=== PATIENT | female | born 2005 | race Caucasian/White ===

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

== ENCOUNTER 2025-06-25 21:16 | Emergency (ER) | payer OTHER, SELFPAY ==
--- NOTE | ~2025-06-25 | CT_ITS ---
EXAMINATION: CT abdomen pelvis w con DATE: 06/26/2025 00:42 INDICATION: Generalized abdominal pain TECHNIQUE: Computed tomography (CT) of the abdomen and pelvis was performed with 100 cc Omnipaque 350 intravenous contrast. The dose-length product was 332.52 mGy-cm. Automated exposure control and iterative reconstruction technique were employed. COMPARISON: CT dated 05/25/2023 FINDINGS: Heart size normal. No significant pleural or pericardial effusion. Fatty infiltration of the liver. There is mild thickening of the descending colon with surrounding inflammation, suspicious for diverticulitis versus colitis. No abscess identified. Fatty infiltration of the liver. The pancreas, adrenal glands and kidneys are unremarkable. Gallbladder is present. Nonob structive bowel gas pattern. Small amount of free fluid in the pelvis. No acute osseous abnormality. There is a right ovarian cyst measuring 3.2 cm. IMPRESSION: 1. Mild thickening of the descending colon with surrounding inflammation/fluid. Differential diagnosis includes infectious/inflammatory colitis versus diverticulitis. Reviewed, dictated and finalized at location O. IMPRESSION: 1. Mild thickening of the descending colon with surrounding inflammation/fluid. Differential diagnosis includes infectious/inflammatory colitis versus diverti culitis.
--- OUTSIDE RECORDS SUMMARY | 2025-06-25 21:18 | XMS_ITS | Clinical Summary ---
Author Organization [facility] Address [address] [place] [address] Phone Care Team Providers Care Mechanical Product Engineer Name Role Phone Conor Rangel MD Primary Care Provider [phone] Allergies Active Allergy Reactions Criticality Noted Date Comments Amoxicillin Hives 05/17/2021 Cefdinir Rash Medium 12/08/2018 Penicillins Rash Medium 12/08/2018 Medications metroNIDAZOLE (FLAGYL) 500 MG TabletIndication s:BV (bacterial vaginosis) Take 1 Tablet by mouth 2 times daily. 30 Tablet 09/28/2021 Active Active Problems No known active problems Social History Tobacco Use Types Packs/Day Years Used Date Smoking Tobacco: Never Smokeless Tobacco: Never Alcohol Use Standard Drinks/Week Comments Never 0 (1 standard drink = 0.6 oz pur e alcohol) Sexually Active Control Partners Comments Never Comments No Sex and Gender Information Value Date Recorded Sex Assigned at Not on file Legal Sex Female 11:25 AM CDT Gender Identity Not on file Sexual Orientation Not on file Last Filed Vital Signs Vital Sign Reading Time Taken Comments Blood Pressure 116/64 09/28/2021 5:40 PM SIGN BUILDER Pulse 90 09/28/2021 5:40 PM SIGN BUILDER Temperature 36.9 C (98.4 F) 09/28/2021 5:40 PM SIGN BUILDER Respiratory Rate 16 09/28/2021 5:40 PM SIGN BUILDER Oxygen Saturation 95% 09/28/2021 5:40 PM SIGN BUILDER Inhaled Oxygen Concentration - - Weight 66.5 kg (146 lb 9.6 oz) 09/28/2021 5:40 P M SIGN BUILDER Height - - Body Mass Index - - Plan of Treatment Health Maintenance Due Date Last Done Comments Hepatitis C Virus (HCV) Screening 2005 Meningococcal B Immunization (1 of 2 - Standard) 2021 SARS-COV-2 Immunization ( season) 2024 Influenza Immunization (#1) 07/01/202510/01, 06/11/2011, 09/27/2007, Additional history exists Respiratory Syncytial Virus (RSV) Immunization (Adult) (1 - 1-dose 75+ series) 2080 Pneumococcal Immunization Combined Aged Out 04/18/2006, 2005, 2005, Additional history exists No longer eligible based on patient's age to complete this topic Hepatitis A Immunization Discontinued 09/27/2007, 12/30 Varicella Immunization Discontinued 06/23/2009, 2005 Measles Mumps Rubella (MMR) Immunization Discontinued 03/25/2010, 04/18/2006 Polio (IPV) Immunization Discontinued 010, 2005, 2005, Additional history exists DTaP/Tdap/Td Immunization Discontinued 2015, 07/01/2010, 08/19/2006, Additional history exists Meningococcal Immunization (ACWY) Aged Out 04/14/2016 No longer eligible based on patient's age to complete this topic TdaP Immunization Completed 04/14/2016 Human Papillomavirus (HPV) Immunization Completed 10/20/2016, 06/14/2016, 04/14/2016 Hepatitis B Immunization Completed 021, 2005, 2005 Rotavirus Immunization Aged Out No lo nger eligible based on patient's age to complete [place] [address] [place] [id number] [facility] Care Teams Mechanical Product Engineer Relationship Specialty Start Date End Date Conor Rangel MD [address] [place] [address] PCP - General Pediatrics 05/17/21
--- OUTSIDE RECORDS SUMMARY | 2025-06-25 21:18 | XMS_ITS | Clinical Summary ---
Author Organization [facility] [place] [address] Address [address] [place] [address] Phone Care Team Providers Care Traffic Controller Cable Name Role Phone Jeevan Wahl MD Primary Care Provider + Allergies Active Allergy Reactions Criticality Noted Date Comments Cefdinir Rash Medium 12/08/2018 Penicillins Medications etonogestreL (NEXPLANON) 68 mg implantIndications : Contraception by subdermal route Active valACYclovir (VALTREX) 500 mg tablet Take 1 tablet (500 mg) by mouth twice daily for 3 days. 6 tablet 5 4 10/26/20 25 Active busPIRone (BUSPAR) 10 mg tablet Take 1 tablet (10 mg total) by mouth 2 (two) times a day 5 Active lisdexamfetamine (VYVANSE) 40 mg capsule Take 1 capsule (40 mg total) by mouth every morning 5 Active Active Problems Problem Noted Date Diagnosed Date Genital herpes 05/13/2023 Encounters Date Type Department Care Team Description 05/08/2025 Results Follow-Up [facility] [place] [address] [place] [id number] Carlee Zelaya NP Vaginitis panel Vaginal, Urine culture Urine, clean voided 05/07/2025 5:03 PM CDT - 05/07/2025 11:59 PM CDT Hospital Encounter [facility] [address] [place] [address] Dysuria Discharge Disposition: Discharge to home or self care 05/07/2025 5:00 PM CDT Office Visit [facility] [place] [address] [place] [address] Eufemia Benson NP Dysuria (Primary Dx) from Last 3 Months Medical History Medical History Date Comments 2021 Family History Medical History Relation Name Comments Breast cancer Maternal Great-Grandmother Hypertension Paternal Grandfather Hypertension Paternal Grandmother Breast cancer Paternal Great-Grandmother Relation Name Status Comments Maternal Great-Grandmother Paternal Grandfather Paternal Grandmother Paternal Great-Grandmother Social History Tobacco Use Types Packs/Day Years Used Date Smoking Tobacco: Some Days Vaping Smokeless Tobacco: Never Tobacco Cessation:Ready to Q uit: Not Asked; Counseling Given: Not Answered Comments No Sex and Gender Information Value Date Recorded Sex Assigned at Not on file Legal Sex Female 12:23 PM CATERING COORDINATOR Gender Identity Not on file Sexual Orientation Not on file Occupation Industry Job Start Date Job End Date Student- [employer] Not on file Not on file Not on file Obstetrics History Para Term AB IAB SAB Ectopic Multiple Livin g Live Births 0 0 0 0 0 0 0 0 0 0 0 Last Filed Vital Signs Vital Sign Reading Time Taken Comments Blood Pressure 120/70 05/07/2025 4:56 PM CDT Pulse 84 05/07/2025 4:56 PM CDT Temperature 36.1 C (97 F) 05/07/2025 4:56 PM CDT Respiratory Rate 16 05/07/2025 4:56 PM CDT Oxygen Saturation 98% 05/07/2025 4:56 PM CDT Inhaled Oxygen Concentration - - Weight 62.1 kg (137 lb) 05/07/2025 4:56 PM CDT Height 162.6 cm (5' 4) 05/07/2025 4:56 PM CDT Body Mass Index 23.52 05/07/2025 4:56 PM CDT Plan of Treatment Health Maintenance Due Date Last Done Comments Depression Screening 2005 Hepatitis C Screening 2005 Pneumococcal vaccine <65 (1 of 1 - PPSV23, PCV20, or PCV21) 2011 04/18/2006, 2005, 2005, Additional history exists Meningococcal B Vaccine (1 o f 2 - Standard) 2021 Influenza Vaccine (#1) 2025 6, 06/11/2011, 09/27/2007, Additional history exists Chlamydia and Gonorrhea (GC/ CT) Screening 01/04/2026 01/04/2025, 11/22/2022, 05/31/2022, Additional history exists Regular Well Visit/Exam 18-64 01/04/2026 01/04/2025 DTaP/Tdap/Td Vaccine (7 - Td or Tdap) 04/14/2026 04/14/2016, 07/01/2010, 08/19/2006, Additional history exists Varicella Vaccines Completed 06/23/2009, 04/18/2006 HPV Vaccines Completed 10/20/2016, 05/31, 04/14/2016 Hepatitis B Screening Completed 07/01/2021 , 2005, 2005 Meningococcal Vaccine Completed 07/12/2022, 016 Procedures Procedure Name Priority Date/Time Associated Diagnosis Comments POCT URINALYSIS DIPSTICK Routine 05/07/2025 5:07 PM CDT Dysuria VAGINITIS PANEL Routine 05/07/2025 5:03 PM CDT Dysuria URINE CULTURE Routine 05/07/2025 5:03 PM CDT Dysuria N. GONORRHOEAE/C. TRACHOMATIS AMPLIFICATION Routine 01/04/2025 3:55 PM CATERING COORDINATOR Screening for venereal disease from Last 3 Months or Most Recently Relevant to Health Maintenance Results * (ABNORMAL) POCT urinalysis dipstick (05/07/2025 5:07 PM CDT) Color, Urine, POC Yellow Clarity, ur, POC Clear Clear Glucose, ur, POC Negative Negative Bilirubin, ur, POC Negative Negative Ketones, ur, POC Negative Negative Specific Harmony, POC 1.015 1.003 - 1.030 Blood, ur, POC Trace(A) Negative pH, ur, POC 7.0 5.0 - 8.0 Protein, ur, POC Negative Negative Urobilinogen, urine, POC 0.2 0.2 - 1.0 mg/dL Nitrite, ur, POC Negative Negative Leukocytes, ur, POC Negative Negative Lot Number [id number] Urine 05/07/2025 5:07 PM CDT Eufemia Benson POINT OF CARE TEST ORDERABLES Fi nal Result * (ABNORMAL) Vaginitis panel Vaginal (05/07/2025 5:03 PM CDT) Pathologist [facility] Bacterial Vaginosis Not Detected Not Detected Comment:A negative result do es not preclude a possible infection. Results should be considered in conjunction with clinical presentation to determine the disease status. Paola group Detected(A) Not Detected [facility] Comment:Paola species can be present as commensal organisms in women; results should be considered in conjunction with clinical presentation to determine the disease status. Paola glabrata/ krusei Not Detected Not Detected [facility] Trichomonas DNA Not Detected Not Detected [facility] Vaginal 05/07/2025 5:03 PM CDT 05/07/2025 9:05 PM CDT Narrative [facility] - 05/07/2025 10:08 PM CDT The CepPressConnectid Xpert Xpress MVP test detects DNA targets from anaerobic bacteria associated with bacterial vaginosis, Paola species associated with vulvovaginal candidiasis, and Trichomonas vaginalis by nucleic acid amplification testing (NAAT). Results should be interpreted in conjunction with other clinical data. This test cannot be used to assess therapeutic success or failure because target nucleic acids may persist following antimicrobial therapy. This test has been cleared by the [place] Food and Drug Administration to aid in the diagnosis of vaginal infections in symptomatic women ages 14 and older. The performance characteristics of this test have been verified by the [facility]. us Eufemia Benson NP LAB MICROBIOLOGY - GENERAL ORDER MAKEDA Final Result [facility] [address] Department [place] [address] * Urine culture Urine, clean voided (05/07/2025 5:03 PM CDT) Report Final Report: Less than 100,000 colonies/mL (clinically insignificant growth based on current clinical standards) Comment:Testing performed by : [facility], [address] [place]., [address] Organism (CLINICALLY INSIGNIFICANT GROWTH [facility] Urine, clean voided 05/07/2025 5:03 PM CDT 05/08/2025 12:01 AM CDT Narrative [facility] - 05/09/2025 7:54 AM CDT Testing performed by [facility] Microbiology Laboratory ([phone]) Eufemia Benson NP LAB MICROBIOLOGY - GENERAL ORDER MAKEDA Final Result [facility] [address] Department [place] [address] * N. gonorrhoeae/C. trachomatis Amplification Endocervical (01/04/2025 3:55 PM CATERING COORDINATOR) C. trachomatis Not Detected [facility] Comment:Testing performed by : [facility], [address] [place] [address]., [id number] N. gonorrhoeae Not Detected [facility] Comment: Interpretive Data This assay detects Chlamydia trachomatis and Neisseria gonorrhoeae by nucleic acid amplification testing (NAAT). This assay has been cleared by the [place] Food and Drug administration. The performance characteristics of this test have been verified by the [facility] Molecular Infectious Disease laboratory. The performance characteristics of this test have not been evaluated in individuals less than 14 years of age. Current Interpretive Data was last revised on 2023. Testing performed by: [facility], [address] [place] [address]., [id number] Endocervical (None) 01/05/20 3:55 PM CATERING COORDINATOR 01/05/2025 4:32 AM CATERING COORDINATOR Estefania Bentley MD LAB MICROBIOLOGY - GE NERAL ORDERABLES Final Result Performing Organization Address City/State/ZIP Co co Phone Number [facility] [phone] [facility] Department [place] [address] [facility] from Last 3 Months or Most Recently Relevant to Health [place] [id number] [facility] [address] [place] [address] [facility] [place] [address] [facility] Care Teams Traffic Controller Cable Relationship Specialty Start Date End Date Jeevan Wahl MD [address] [place] [address] PCP - General Internal Medicine 01/07/24
[2025-06-25 21:22] VITALS: BP 131/69; PULSE 115; RESP 20; TEMP 36.6; O2SAT 99
--- OUTSIDE RECORDS SUMMARY | 2025-06-25 22:19 | XMS_ITS | Clinical Summary ---
Author Organization [facility] Address [address] [place] [address] Phone Care Team Providers Care Hardware Manager Name Role Phone Conor Rangel MD Primary Care Provider +1- [phone] Allergies Active Allergy Reactions Criticality Noted Date [...] Comments Blood Pressure 116/64 09/28/2021 5:40 PM DIRECT SELLING COUNSELOR Pulse 90 09/28/2021 5:40 PM DIRECT SELLING COUNSELOR Temperature 36.9 C (98.4 F) 09/28/2021 5:40 PM DIRECT SELLING COUNSELOR Respiratory Rate 16 09/28/2021 5:40 PM DIRECT SELLING COUNSELOR Oxygen Saturation 95% 09/28/2021 5:40 PM DIRECT SELLING COUNSELOR Inhaled Oxygen Concentration - - Weight 66.5 kg (146 lb 9.6 oz) 09/28/2021 5:40 P M DIRECT SELLING COUNSELOR Height - - Body Mass Index - [...] complete this [place] [address] [place] [id number] [facility] Care Teams Hardware Manager Relationship Specialty Start Date End Date Conor Rangel MD [address] [place] [address] PCP - General Pediatrics 05/17/21
[2025-06-25 22:31] LABS: BEDSIDEPREGUCG Negative (Negative)
[2025-06-25 22:31] LABS: Add Urine Microscopic? NO; Appearance Urine Clear (Clear); Glucose Urine UA Negative (Negative); Leukocyte Esterase Ur Negative LEU/UL (Negative); Nitrate Urine Negative (Negative); Specific Grav Ur 1.015 (1.001-1.035)
[2025-06-25 22:45] LABS: Hematocrit 40.3 % (37.0-47.0); Hemoglobin 13.9 g/dL (12.0-15.0); Immature Granulocyte Percent A 0.4 % (0-0.5); Lymphocytes Absolute Auto 1.67 K/mm3 (0.9-3.2); Mean Corpuscular HGB Conc 34.5 g/dl (32-36); Mean Corpuscular Hemoglobin 28.9 pg (26-34); Mean Corpuscular Volume 83.8 fl (80-100); Nucleated Red Blood Cells Absolute Auto 0.000 K/mm3 (0.0-0.012); Nucleated Red Blood Cells Perc 0.0 % (0.0-0.2); Platelet Count Result 323 k/mm3 (150-375); Red Blood Count 4.81 M/mm3 (4.2-5.4); White Blood Count 16.5 K/mm3 (4.5-10.0)
[2025-06-25 23:02] LABS: Alanine Aminotransferase 17 U/L (6-35); Albumin Level 4.4 g/dL (3.5-5.1); Alkaline Phosphatase 59 U/L (38-126); Anion Gap 10 mmol/L (4-12); Aspartate Amino Transferase 26 U/L (14-36); Bilirubin,Total 1.1 mg/dL (0.2-1.3); Blood Urea Nitrogen 10 mg/dL (7-17); Calcium 10.0 mg/dL (8.4-10.2); Carbon Dioxide 22 mmol/L (22-30); Chloride 104 mmol/L (98-107); Estimated CRCL calculation 107 ml/min; Estimated Glomerular Filt Rate > 60; Glucose 108 mg/dL (65-110); Lipase 33 U/L (23-300); Potassium 3.3 mmol/L (3.4-5.0); Sodium 136 mmol/L (137-145); Total Protein 7.4 g/dL (6.3-8.2)
--- NOTE | 2025-06-25 23:44 | ED_ITS ---
HPI - Abdominal Pain General Chief Complaint: Abdominal Pain Stated Complaint: lower abdominal pain and low back pain Time Seen by Provider: 06/25/25 22:08 History of Present Illness HPI narrative: Patient is a 20 year female who presents to the ER with generalized abdominal pain. She reports her pain started this morning. Patient reports the pain has now spread to her bilateral lower back. She reports her last bowel movement was this evening and it was soft. Patient denies any recent fevers, urinary symptoms, chest pain, shortness of breath, or lower extremity swelling. She endorses a history of anxiety, UTIs and pyelonephritis. Patient denies any recent alcohol use but endorses intermittent marijuana use. Related Data Allergies Allergy/AdvReac Type Severity Reaction Status Date / Time Penicillins Allergy Rash Verified 06/26/25 02:37 Review of Systems 2 Review of Systems: All systems reviewed & are unremarkable except as noted in HPI and below PMFSH Past Medical History Medical History Tobacco use Marijuana use Surgical History Surgical History No pertinent past surgical history Family History Family History Father Hypertension Kidney stones Social History Social History Social History: The patient lives with her family. She vapes nicotine. She uses marijuana she works at [employer] She has no children and is single. Her mother is her durable power divorce attorney for healthcare. Code status full code Second hand tobacco smoke exposure: No Additional smoking assessment comments: uses nicotine vape Substance use: current Substance use type: marijuana Other substance usage details: marijuana and nicotine vape Lack of Transportation: No Lack of Food: Never True Current Housing: I Have Housing Concerned About Future Housing: No Difficulty Paying Gas/Electric Bills: No Difficulty Paying for Meds: No Currently Unemployed: No Education: High School Diploma/GED Difficulty w/ Childcare or Family Care: No Spiritual care concerns: No Exam 2 Narrative: GENERAL: Well appearing, well-nourished, non-toxic, in no acute distress. HEAD: Normocephalic, atraumatic. NECK: Supple. No adenopathy, no masses. RESPIRATORY: Airway patent, respirations nonlabored. Clear to auscultation bilaterally, no rales, rhonchi, wheezing. CARDIOVASCULAR: Regular rate and rhythm without murmurs, rubs, or gallops. Peripheral pulses 2+ and equal bilaterally. ABDOMINAL: Soft, tender right lower quadrant and left lower quadrant, nondistended, no hepatosplenomegaly. Normoactive BS. MUSCULOSKELETAL: Moves all extremities. Strength/ROM intact without gross deformities. SKIN: Warm, dry, normal color. No rashes. NEURO: A&O X3. Speech clear. Cranial nerves II-XII intact. No ataxic movements. PSYCHIATRIC: Appropriate mood and affect. Normal interaction. Course Vital Signs Vital signs: Vital Signs Temperature 36.6 C 06/25/25 21:22 Pulse Rate 115 H 06/25/25 21:22 Respiratory Rate 20 06/25/25 21:22 Blood Pressure 131/69 06/25/25 21:22 Pulse Oximetry 99 06/25/25 21:22 Temperature 36.6 C 06/25/25 21:22 Pulse Rate 96 06/25/25 23:45 Respiratory Rate 16 06/25/25 23:45 Blood Pressure 128/69 06/25/25 23:45 Pulse Oximetry 99 06/25/25 23:45 MDM - Abdominal Pain MDM Narrative Medical decision making narrative: Patient is a 20 year female who presents to the ER with generalized abdominal pain. She reports her pain started this morning. Patient reports the pain has now spread to her bilateral lower back. She reports her last bowel movement was this evening and it was soft. Patient denies any recent fevers, urinary symptoms, chest pain, shortness of breath, or lower extremity swelling. She endorses a history of anxiety, UTIs and pyelonephritis. Patient denies any recent alcohol use but endorses intermittent marijuana use. Labs Ordered: CBC, CMP, UA, lactic acid, lipase, UDS Imaging Ordered: CT abdomen pelvis with contrast Medications Ordered: Ativan oral 1 mg 1 L normal saline IV bolus Results: Patient states CBC indicates a white blood cell count of 16.5 and neutrophil count of 82%. Her chemistry indicates a sodium of 136, potassium of 3.3, and creatinine of 0.62. Patient's lipase was within normal limits. Her urinalysis indicates ketones of 4+. Patient's UDS is positive for cannabinoids. Her CT scan indicates wall thickening of the mid descending colon, with surrounding inflammation, consistent with colitis. Her CT scan also indicates hepatic steatosis and a right ovarian cyst. Diagnosis: Colitis, hepatitic steatosis Consults: Gastroenterology (outpatient) Patient Education/Shared MDM: Results of lab work and imaging shared with patient. She endorses improvement of anxiety symptoms following medication administration. Patient strongly advised to maintain hydration status upon discharge and follow-up with Gastroenterology for further evaluation and treatment. She will be discharged home with a prescription for Bentyl, Reglan and Medrol DosePak. Strict return precautions provided. Patient verbalized understanding and is in agreement with plan. Vital signs stable at time of discharge. All questions answered. Differential Diagnosis Differential diagnosis: Likely abdominal pain, calculus of kidney, diverticulitis, gastroenteritis, small bowel obstruction and other (Colitis) Lab Data Attestation: I reviewed the patient's lab results. 06/25/25 22:41 06/25/25 22:41 Labs: Lab Results 06/25/25 06/25/25 06/25/25 Range/Units 22:24 22:29 22:41 WBC 16.5 H (4.5-10.0) K/mm3 RBC 4.81 (4.2-5.4) M/mm3 Hgb 13.9 D (12.0-15.0) g/dL Hct 40.3 (37.0-47.0) % MCV 83.8 (80-100) fl MCH 28.9 (26-34) pg MCHC 34.5 (32-36) g/dl RDW 12.1 (11.5-14.5) % Plt Count 323 (150-375) k/mm3 MPV 9.0 (7.4-10.4) fl Immature Gran % (Auto) 0.4 (0-0.5) % Neut % (Auto) 82.0 H (45.5-73.1) % Lymph % (Auto) 10.1 L (18.3-44.2) % [place] % (Auto) 7.2 (2.6-8.5) % Eos % (Auto) 0.1 (0-4.4) % Baso % (Auto) 0.2 (0.2-1.2) % Lymph # (Auto) 1.67 (0.9-3.2) K/mm3 [place] # (Auto) 1.2 H (0.1-0.6) K/mm3 Eos # (Auto) 0.0 (0-0.3) K/mm3 Baso # (Auto) 0.0 (0.0-0.1) K/mm3 Abs Immat Gran (auto) 0.07 H (0.00-0.031) K/mm3 Absolute Neuts (auto) 13.6 H (1.3-6.7) K/mm3 Absolute Nucleated RBC 0.000 (0.0-0.012) K/mm3 Nucleated RBC % 0.0 (0.0-0.2) % Sodium 136 L (137-145) mmol/L Potassium 3.3 L (3.4-5.0) mmol/L Chloride 104 (98-107) mmol/L Carbon Dioxide 22 (22-30) mmol/L Anion Gap 10 (4-12) mmol/L BUN 10 (7-17) mg/dL Creatinine 0.62 L (0.7-1.0) mg/dL Estim Creat Clear Calc 107 ml/min Estimated GFR > 60 (59 - ) Glucose 108 (65-110) mg/dL Lactic Acid (0.7-2.0) mmol/L Calcium 10.0 (8.4-10.2) mg/dL Total Bilirubin 1.1 (0.2-1.3) mg/dL AST 26 (14-36) U/L ALT 17 (6-35) U/L Alkaline Phosphatase 59 (38-126) U/L Total Protein 7.4 (6.3-8.2) g/dL Albumin 4.4 (3.5-5.1) g/dL Lipase 33 (23-300) U/L Urine Color Yellow (Yellow) Urine Appearance Clear (Clear) Urine pH 7.5 (5.0-9.0) Ur Specific [place] 1.015 (1.001-1.035) Urine Protein Negative (Negative) mg/dL Urine Glucose (UA) Negative (Negative) mg/dL Urine Ketones 4+ H (Negative) mg/dL Ur Blood (Man) Negative (Negative) Urine Nitrate Negative (Negative) Urine Bilirubin Negative (Negative) Urine Urobilinogen 1.0 (<2.0) mg/dL Leukocyte Esterase Rfl Negative (Negative) PAUL/UL POC Urine HCG, Qual Negative (Negative) Urine Opiates Screen Negative (Negative) Urine Methadone Screen Negative (Negative) Ur Barbiturates Screen Negative (Negative) Ur Phencyclidine Scrn Negative (Negative) Ur Amphetamine Screen Negative (Negative) U Benzodiazepines Scrn Negative (Negative) Urine Cocaine Screen Negative (Negative) U Cannabinoids Screen Positive A (Negative) 06/26/25 Range/Units 00:18 WBC (4.5-10.0) K/mm3 RBC (4.2-5.4) M/mm3 Hgb (12.0-15.0) g/dL Hct (37.0-47.0) % MCV (80-100) fl MCH (26-34) pg MCHC (32-36) g/dl RDW (11.5-14.5) % Plt Count (150-375) k/mm3 MPV (7.4-10.4) fl Immature Gran % (Auto) (0-0.5) % Neut % (Auto) (45.5-73.1) % Lymph % (Auto) (18.3-44.2) % [place] % (Auto) (2.6-8.5) % Eos % (Auto) (0-4.4) % Baso % (Auto) (0.2-1.2) % Lymph # (Auto) (0.9-3.2) K/mm3 [place] # (Auto) (0.1-0.6) K/mm3 Eos # (Auto) (0-0.3) K/mm3 Baso # (Auto) (0.0-0.1) K/mm3 Abs Immat Gran (auto) (0.00-0.031) K/mm3 Absolute Neuts (auto) (1.3-6.7) K/mm3 Absolute Nucleated RBC (0.0-0.012) K/mm3 Nucleated RBC % (0.0-0.2) % Sodium (137-145) mmol/L Potassium (3.4-5.0) mmol/L Chloride (98-107) mmol/L Carbon Dioxide (22-30) mmol/L Anion Gap (4-12) mmol/L BUN (7-17) mg/dL Creatinine (0.7-1.0) mg/dL Estim Creat Clear Calc ml/min Estimated GFR (59 - ) Glucose (65-110) mg/dL Lactic Acid 0.7 (0.7-2.0) mmol/L Calcium (8.4-10.2) mg/dL Total Bilirubin (0.2-1.3) mg/dL AST (14-36) U/L ALT (6-35) U/L Alkaline Phosphatase (38-126) U/L Total Protein (6.3-8.2) g/dL Albumin (3.5-5.1) g/dL Lipase (23-300) U/L Urine Color (Yellow) Urine Appearance (Clear) Urine pH (5.0-9.0) Ur Specific [place] (1.001-1.035) Urine Protein (Negative) mg/dL Urine Glucose (UA) (Negative) mg/dL Urine Ketones (Negative) mg/dL Ur Blood (Man) (Negative) Urine Nitrate (Negative) Urine Bilirubin (Negative) Urine Urobilinogen (<2.0) mg/dL Leukocyte Esterase Rfl (Negative) PAUL/UL POC Urine HCG, Qual (Negative) Urine Opiates Screen (Negative) Urine Methadone Screen (Negative) Ur Barbiturates Screen (Negative) Ur Phencyclidine Scrn (Negative) Ur Amphetamine Screen (Negative) U Benzodiazepines Scrn (Negative) Urine Cocaine Screen (Negative) U Cannabinoids Screen (Negative) Imaging Data Attestation: I personally reviewed and interpreted this imaging study as follows: Radiologist's impression: Patient's CT scan indicates wall thickening of the mid descending colon, with surrounding inflammation, consistent with colitis. Her CT scan also indicates hepatic steatosis and a right ovarian cyst. Discharge Plan Discharge Clinical Impression: Colitis, Hepatic steatosis Patient Disposition: Home Condition: Stable Instructions: Antibiotic Form Additional Instructions: Please return to the ER with any worsening symptoms. Follow-up with gastroenterology. You should call them to schedule an appointment. Take all medications as prescribed, including regularly scheduled medications. Patient Language: Ukrainian Prescriptions: New dicyclomine 20 mg tablet 20 mg PO TID Qty: 20 0RF metoclopramide HCl [Reglan] 10 mg tablet 10 mg PO Q6H PRN (Reason: nausea and vomiting) Qty: 20 0RF methylprednisolone [Medrol (Benito)] 4 mg tablets,dose pack See Rx Instructions PO .COMPLEX Qty: 21 0RF Rx Instructions: for 6 days No Action sulfamethoxazole-trimethoprim [Bactrim DS] 800-160 mg tablet 1 tablet PO Q12H Qty: 20 0RF Follow-up/Referrals: Vish,Ángel Kelsey MD [Primary Care Provider] Time of Disposition: 02:59
[2025-06-25 23:45] VITALS: BP 128/69; PULSE 96; RESP 16; O2SAT 99
[2025-06-25] MEDS: LORazepam (*CRX) 2 MG/ML ORAL CONCENTRATE 1 ML SYRINGE 1 MG PO (23:46)
[2025-06-26 00:17] LABS: Cannabinoid Screen Urine Positive (Negative)
[2025-06-26] MEDS: SODIUM CHLORIDE 0.9% IV 1,000 ML 999 ML IV CONT (00:18)
--- NOTE | 2025-06-26 00:21 | PC.NURSE ---
CT notified of establishment of IV.
[2025-06-26] MEDS: DICYCLOMINE HCL 10 MG CAPSULE 20 MG PO (03:05)
[2025-06-26 03:10] VITALS: BP 132/74; PULSE 65; RESP 18; TEMP 37.1; O2SAT 99
== END 2025-06-26 03:11 | disposition home or self-care (01) ==
PROVIDERS: Emergency Medicine; Emergency Provider Registered Nurse; PCP Internal Medicine
DX: K52.9 Noninfective gastroenteritis and colitis, unspecified (principal); K76.0 Fatty (change of) liver, not elsewhere classified
CPT/HCPCS: 36415; 74177; 80053; 80307; 81003; 81025; 83605; 83690; 85025; 96360; 99284; A9270; J7030; J7512; Q9967

== ENCOUNTER 2025-08-20 17:53 | Emergency (ER) | payer OTHER, SELFPAY ==
[2025-08-20 18:01] VITALS: BP 126/73; PULSE 93; RESP 18; TEMP 36.4; O2SAT 99
--- NOTE | 2025-08-20 18:50 | ED_ITS ---
HPI - General Adult General Chief complaint: Skin/Abscess/Foreign Body Stated complaint: Left thumb lac Source: patient Mode of arrival: ambulatory Limitations: no limitations History of Present Illness HPI narrative: Patient presents for evaluation of laceration to left thumb that occurred just prior to arrival. She was carving a pumpkin with a new knife and cut her left thumb in the process. She currently has pain that she rates 8 on a scale of 1- 10. No loss of range of motion. No paresthesias. Date of last tetanus unknown. She is not diabetic. She is right-hand dominant. Related Data Home Medications ?Medication ?Instructions ?Recorded ?Confirmed ?Last Taken ?Type buspirone 10 mg tablet mg 08/20/25 Unknown History Allergies Allergy/AdvReac Type Severity Reaction Status Date / Time Penicillins Allergy Rash Verified 08/20/25 18:05 Review of Systems Review of Systems: CONSTITUTIONAL: Denies fever, chills, or sweats. EYES: Denies visual changes, redness, or discharge. ENT: Denies rhinorrhea, congestion, sore throat, or otalgia. CARDIOVASCULAR: Denies chest pain, palpitations, or edema. RESPIRATORY: Denies cough or dyspnea. GASTROINTESTINAL: Denies abdominal pain, nausea, vomiting, or diarrhea. GENITOURINARY: Denies dysuria or hematuria. SKIN: Reports left thumb laceration MUSCULOSKELETAL: Reports left thumb pain. Denies other musculoskeletal pain NEUROLOGIC: Denies headache, numbness, dizziness, or weakness. PSYCHIATRIC: Denies anxiety or depression. [facility] Past Medical History Medical History Tobacco use Marijuana use Surgical History Surgical History No pertinent past surgical history Family History Family History Father Hypertension Kidney stones Social History Social History Social History: The patient lives with her family. She vapes nicotine. She uses marijuana she works at [employer]. She has no children and is single. Her mother is her durable power compliance attorney for healthcare. Code status full code Second hand tobacco smoke exposure: No Additional smoking assessment comments: uses nicotine vape Substance use: current Substance use type: marijuana Other substance usage details: marijuana and nicotine vape Lack of Transportation: No Lack of Food: Never True Current Housing: I Have Housing Concerned About Future Housing: No Difficulty Paying Gas/Electric Bills: No Difficulty Paying for Meds: No Currently Unemployed: No Education: High School Diploma/GED Difficulty w/ Childcare or Family Care: No Spiritual care concerns: No Exam Narrative: GENERAL: Well-appearing, well-nourished, and in no acute distress. HEAD: Normocephalic, atraumatic. EYES: PERRLA and EOMI. ENT: Nares clear, no rhinorrhea or epistaxis. Mucous membranes moist. Oropharynx without tonsillar hypertrophy exudate or other lesions. Bilateral TMs pearly mcadams nonbulging NECK: Supple. No adenopathy or masses. No carotid bruits or JVD CHEST: Clear to auscultation. No respiratory distress. No wheezes rales or rhonchi HEART: Regular rate and rhythm. No murmur heard. Normal peripheral pulses. ABDOMEN: Soft, nontender, nondistended, normal active bowel sounds. EXTREMITIES: Normal range of motion. No edema. SKIN: There is a 1.4 cm laceration to left thumb formation. Wound bed is pink NEURO: No focal deficits. Alert and oriented x3. PSYCH: Normal mood and affect. Course Course Emergency Course: This is a 20-year-old female who presented for evaluation of laceration to the left thumb. I recommended closure with sutures. She declined. She states she has a phobia of needles. We discussed possible risks for closure with glue including infection. She opted to proceed with closure with dermabond. Wound was thoroughly irrigated and closed with Dermabond. She tolerated well. She was provided with a finger splint. She was updated on tetanus. Will discharge with cephalexin(allergic reaction to PCN is rash). Follow up with primary care provider. Go to the ER for worsening symptoms. Pt in agreement with plan of care. Level of Care: Express Care Visit Vital Signs Vital signs: Vital Signs Temperature 36.4 C L 08/20/25 18:01 Pulse Rate 93 08/20/25 18:01 Respiratory Rate 18 08/20/25 18:01 Blood Pressure 126/73 08/20/25 18:01 Pulse Oximetry 99 08/20/25 18:01 Oxygen Delivery Room Air 08/20/25 18:01 Temperature 36.4 C L 08/20/25 18:01 Pulse Rate 93 08/20/25 18:01 Respiratory Rate 18 08/20/25 18:01 Blood Pressure 126/73 08/20/25 18:01 Pulse Oximetry 99 08/20/25 18:01 Oxygen Delivery Room Air 08/20/25 18:01 Procedures Laceration Laceration 1: Date: 08/20/25 Time: 18:54 Site: hand Size (cm): 1.4 Description: flap Pre-repair: wound explored and irrigated extensively ====== Skin Level ====== Skin layer closed with: dermabond ====== Subcutaneous Layer ====== ====== Muscle Layer ====== ====== Tendon Layer ====== Medical Decision Making Vital Signs Vital Signs: Vital Signs Temperature 36.4 C L 08/20/25 18:01 Pulse Rate 93 08/20/25 18:01 Respiratory Rate 18 08/20/25 18:01 Blood Pressure 126/73 08/20/25 18:01 Pulse Oximetry 99 08/20/25 18:01 Oxygen Delivery Room Air 08/20/25 18:01 Temperature 36.4 C L 08/20/25 18:01 Pulse Rate 93 08/20/25 18:01 Respiratory Rate 18 08/20/25 18:01 Blood Pressure 126/73 08/20/25 18:01 Pulse Oximetry 99 08/20/25 18:01 Oxygen Delivery Room Air 08/20/25 18:01 Discharge Plan Discharge Clinical Impression: Laceration of left thumb Patient Disposition: Home Condition: Stable Instructions: Antibiotic Form, Care For Your Stitches (DC), Finger Laceration (ED) Patient Language: Portuguese Prescriptions: New cephalexin 500 mg capsule 500 mg PO Q6H Qty: 40 0RF No Action buspirone 10 mg tablet sulfamethoxazole-trimethoprim [Bactrim DS] 800-160 mg tablet 1 tablet PO Q12H Qty: 20 0RF dicyclomine 20 mg tablet 20 mg PO TID Qty: 20 0RF metoclopramide HCl [Reglan] 10 mg tablet 10 mg PO Q6H PRN (Reason: nausea and vomiting) Qty: 20 0RF methylprednisolone [Medrol (Benito)] 4 mg tablets,dose pack See Rx Instructions PO .COMPLEX Qty: 21 0RF Rx Instructions: for 6 days Follow-up/Referrals: Vish,Ángel Kelsey MD [Primary Care Provider] Time of Disposition: 18:45
[2025-08-20] MEDS: TETANUS,DIPHTHERIA,AC PERTUSSIS ADULT (0.5 ML) BOOSTRIX IM (18:51)
--- OUTSIDE RECORDS SUMMARY | 2025-08-20 19:57 | XMS_ITS | Clinical Summary ---
Author Organization [facility] Address [address] [place] [address] Phone Care Team Providers Care Phlebotomist Lab Assistant Name Role Phone Unavailable Primary Care Provider Unavailabl e Encounters Date Type Department Care Team Description 08/13/2025 Abstract [facility] Gastroenterology [address] [facility] [address] [place] [address] Charity Beck RN from Last 3 Months Social History Tobacco Use Types Packs/Day Years Used Date Smoking Tobacco: Never Assessed Comments Unknown Sex and Gender Information Value Date Recorded Sex Assigned at Not on file Legal Sex Female 11:13 AM CDT Gender Identity Not on file Sexual Orientation Not on file Plan of Treatment Health Maintenance Due Date Last Done Comments CHLAMYDIA SCREENING (ANNUAL) 11-24 YEARS 2016 HPV VACCINES (1 - 3-dose series) 2020 DTAP/TDAP/TD VACCINES (1 - Tdap) 2024 HEPATITIS B VACCINES (1 of 3 - 19+ 3-dose series) 12/2023 INFLUENZA VACCINE (#1) 2025
--- OUTSIDE RECORDS SUMMARY | 2025-08-20 19:57 | XMS_ITS | Clinical Summary ---
Author Organization [facility] Address [address] [place] [address] Phone Care Team Providers Care Sanding Supervisor Name Role Phone Conor Rangel MD Primary Care Provider [phone] Allergies Active Allergy Reactions Criticality Noted Date [...] Comments Blood Pressure 116/64 09/28/2021 5:40 PM [employer] Pulse 90 09/28/2021 5:40 PM [employer] Temperature 36.9 C (98.4 F) 09/28/2021 5:40 PM [employer] Respiratory Rate 16 09/28/2021 5:40 PM [employer] Oxygen Saturation 95% 09/28/2021 5:40 PM [employer] Inhaled Oxygen Concentration - - Weight 66.5 kg (146 lb 9.6 oz) 09/28/2021 5:40 P M [employer] Height - - Body Mass Index - - Plan of Treatment Health Maintenance Due Date Last Done Comments Hepatitis C Virus (HCV) Screening 2005 Meningococcal B Immunization (1 of 2 - Standard) 2021 Influenza Immunization (#1) 07/01/202510/01, 06/11/2011, 09/27/2007, Additional history exists SARS-COV-2 Immunization (1 - season) 2025 Respiratory Syncytial Virus (RSV) Immunization (Adult) (1 [...] complete this [place] [address] [place] [id number] [facility] Care Teams Sanding Supervisor Relationship Specialty Start Date End Date Conor Rangel MD [address] [place] [address] PCP - General Pediatrics 05/17/21
--- OUTSIDE RECORDS SUMMARY | 2025-08-20 19:57 | XMS_ITS | Clinical Summary ---
Author Organization [facility] [address] Address [address] [place] [address] Phone Care Team Providers Care Laborer Poultry Hatchery Name Role Phone Jeevan Wahl MD Primary [...] Encounters Date Type Department Care Team Description 07/26/2025 2:20 PM CDT Office Visit [facility] [address] [place] [address] Estefania Bentley MD Generalized abdominal pain (Primary Dx); Right ovarian cyst from Last 3 Months Medical History Medical History Date Comments Chlamydia 2021 Family History Medical History Relation Name [...] on file Legal Sex Female 12:23 PM INTERNET MANAGER Gender Identity Not on file Sexual Orientation [...] Sign Reading Time Taken Comments Blood Pressure 118/70 07/26/2025 2:16 PM CDT Pulse 84 05/07/2025 4:56 PM CDT Temperature 36.1 C (97 F) 05/07/2025 4:56 PM CDT Respiratory Rate 16 05/07/2025 4:56 PM CDT Oxygen Saturation 98% 05/07/2025 4:56 PM CDT Inhaled Oxygen Concentration - - Weight 70.8 kg (156 lb) 07/26/2025 2:16 PM CDT Height 162.6 cm (5' 4) 05/07/2025 4:56 PM CDT Body Mass Index 26.78 05/07/2025 4:56 PM CDT Plan of Treatment [...] Procedure Name Priority Date/Time Associated Diagnosis Comments N. GONORRHOEAE/C. TRACHOMATIS AMPLIFICATION Routine 01/04/2025 3:55 PM INTERNET MANAGER Screening for venereal disease from Last 3 Months or Most Recently Relevant to Health Maintenance Results * N. gonorrhoeae/C. trachomatis Amplification Endocervical (01/04/2025 3:55 PM INTERNET MANAGER) C. trachomatis Not Detected [facility] Comment:Testing performed by : [facility], [address] [facility] [place]., [address] N. gonorrhoeae Not Detected [facility] Comment: Interpretive Data This assay detects Chlamydia trachomatis and Neisseria gonorrhoeae by nucleic acid amplification testing (NAAT). This assay has been cleared by the [place] Food and Drug administration. The performance characteristics of this test have been verified by the [facility] Molecular Infectious Disease laboratory. The performance characteristics of this test have not been evaluated in individuals less than 14 years of age. Current Interpretive Data was last revised on 2023. Testing performed by: [facility], [address] [facility] [place]., [address] Endocervical (None) 01/05/20 3:55 PM INTERNET MANAGER 01/05/2025 4:32 AM INTERNET MANAGER Estefania Bentley MD LAB MICROBIOLOGY - [facility] ORDERABLES Final Result [facility] [id number] [facility] Department [place] [address] [facility] from Last 3 Months or Most Recently Relevant to Health Maintenance Insurance [facility] Member Subscriber Plan / Payer (Ef fective 2016-Present) Name:Samantha Murillo Relation to Subscriber:Child Name:DANIELITO MURILLO Date of :1979 (Home) Address: [address] [place] [address] Payer ID:[id number] (NAIC) Type:[facility] H[employer]/PPO Address: [place] [phone] [address] [facility] [address] [phone] [facility] [address] [facility] Care Teams Laborer Poultry Hatchery Relationship Specialty Start Date End Date Jeevan Wahl MD [address] [place] [address] PCP - General Internal Medicine 01/07/24
== END 2025-08-20 18:58 | disposition home or self-care (01) ==
PROVIDERS: Emergency Provider Nurse Practitioner; PCP Internal Medicine
DX: S61.012A Laceration without foreign body of left thumb without damage to nail, initial encounter (principal); W26.0XXA Contact with knife, initial encounter; Z23 Encounter for immunization
CPT/HCPCS: 12001; 90471; 90715; 99213; G0463